=== PATIENT | male | born 1985 | race Caucasian/White ===

== ENCOUNTER 2020-05-14 12:25 | Emergency (ER) | payer OTHER ==
[~2020-05-14] VITALS: Ht 177.8 cm; Wt 78.1 kg
[2020-05-14] MEDS ORDERED: TRAM50TA2 (12:42)
[2020-05-14] MEDS ORDERED: NORC1TAB7 PO (14:56)
[2020-05-14 15:10] VITALS: BP 132/77
--- NOTE | 2020-05-16 09:33 | ER ---
DATE OF CONSULTATION: 05/14/2020 PREOPERATIVE DIAGNOSES: 1. Exacerbation of left chronic carpal tunnel syndrome. 2. Exacerbation of a right chronic carpal tunnel syndrome. 3. Right intersection syndrome. FINDINGS: Please see encounter below. HISTORY OF PRESENT ILLNESS: This is a 34-year-old male who had a four year history of bilateral chronic carpal tunnel syndrome of which he has failed to proceed with nonoperative management to include physical therapy, splinting, activity modification, or NSAID use. Over the years, the patient has had a number of exacerbations of his bilateral chronic carpal tunnel syndrome, of which he has sought treatment for to include arrival at a number of urgent clinics. The patient most recently underwent heavy home repair work on 05/10/2020, of which he had an exacerbation of his chronic carpal tunnel syndrome to include some mild paresthesias in the median nerve distribution to include his right and left thumb, index finger, and ring finger. This is not unusual, this has happened approximately once a month for the last four years. However, he did present to [facility] the morning of 05/14/2020, for no improvement of these symptoms. Of note, he also did present to the [facility] ER on the 05/10/2020, of which he was provided an appointment to [facility], scheduled for tomorrow 05/15/2020. Anyhow, the patient was referred from [facility] to [facility] for further workup and treatment to include rule out of bilateral forearm compartment syndrome of which he was negative as described in the physical exam below. The patient was evaluated at [facility] for concern of forearm compartment syndrome, for which he was negative. The patient underwent the appropriate treatment and the workup regarding his concerns. PAST MEDICAL HISTORY: 1. Anxiety. 2. Seasonal allergies. 3. Hypothyroidism as described by the patient. PAST SURGICAL HISTORY: Denies. MEDICATION ALLERGIES: Denies. CURRENT MEDICATIONS: - trazodone - Synthroid - Claritin - mood stabilizer PHYSICAL EXAMINATION: For the right wrist, the patient had tenderness to palpation about the intersection of the ECRB and ECRL over the first dorsal compartment. a positive Phalens, Durkans, and Tinel's indicative of a carpal tunnel syndrome. The patient had a 2+ radial and ulnar pulse. He had 5/5 motor strength to the musculocutaneous, axillary, radial, and ulnar nerve distributions. However, he had a 4+/5 motor strength to the median nerve distribution to include special loan officer strength utilizing his thumb. He had sensation intact to the light touch to the musculocutaneous, axillary, radial, and ulnar nerve distributions; however, he did have mildly diminished sensation intact to light touch of approximately 15 mm to the median nerve distribution distal to the transverse carpal ligament. Regarding the patients right forearm, the patient had no pain to passive flexion or extension of the fingers. He had compressible volar and dorsal compartments, as well as his mobile wad, which is also compressible. The patient did not require any increased analgesic beyond expected baseline pain. For the patients left upper extremity, the patient had 2+ radial ulnar pulse. He had 5/5 motor strength to the musculocutaneous, axillary, radial, and ulnar nerve distributions. He had a 4+/5 motor strength to the median nerve distributions. Sensation intact to light touch to the musculocutaneous, axillary, radial, and ulnar nerve distributions. He did, however, have diminished sensation to the median nerve distributions of his left upper extremity of approximately 15 mm distal to the transverse carpal ligament. The patient did not have pain to passive stretch and extension of his left fingers. He had a compressible volar dorsal and mobile wad compartment, and the patient did not require any analgesics for pain control regarding his left upper extremity. However, due to overlapping physical exam involving the intersection syndrome with his carpal tunnel, we did perform Jay examination, which resulted in a 4 mmHg pressure of the volar compartment and 10 mmHg of pressure in the dorsal compartment of the left upper extremity, which is not consistent with a compartment syndrome of the forearm. IMAGING: The patient did have prior imaging of the left and right wrist and forearm at [facility], which we were able to upload to our system, which demonstrated no osseous abnormalities. ASSESSMENT: This is a 34-year-old male with left and right exacerbation of chronic carpal tunnel syndrome, left intersection syndrome with no evidence of left or right forearm or hand compartment syndrome. The patient presented with pain and discomfort; however, the patient does have an orthopedic visit to Dr. Knapp office at [facility] tomorrow for evaluation of his four year history of chronic bilateral carpal tunnel syndrome. PLAN: Further recommendations upon discharge include: 1. Bilateral wrist splint to maintain neutral alignment of the wrist. 2. Nonsteroidal anti-inflammatory agents (NSAID) use for pain control. 3. Encouraged the patient to follow-up with his orthopedic appointment tomorrow at [facility]. The patient should feel welcome to return to the ER if he has any exacerbation of his paresthesias; however, given the static nature of his condition over the last six days, this is unlikely. However, he was educated that if there is an increase in paresthesias or pain to return to the ER at [facility]. JAYLIN
== END 2020-05-14 15:15 | disposition home or self-care (01) ==
LOC: M ED 12:25
DX: G56.03 Carpal tunnel syndrome, bilateral upper limbs (principal); M79.602 Pain in left arm; F17.210 Nicotine dependence, cigarettes, uncomplicated; F12.10 Cannabis abuse, uncomplicated